=== PATIENT | female | born 1995 | race Caucasian/White ===

== ENCOUNTER → 2017-12-25 16:40 | Emergency (ER) | payer BC ==
[2017-12-25 16:52] VITALS: BP 148/78
--- NOTE | 2017-12-25 17:10 | UC ---
Skin Complaint HPI - HPI Summary HPI Summary: This patient is a 22 year old F presenting [place] [facility] [place] a chief complaint of a skin complaint on her R knee since 12/23/17. The patient rates the pain 5/10 in severity. Patient reports redness, swelling, and pain over her R knee. She visited [facility] and was told by the nurse to be seen for possible cellulitis. - History of Current Complaint Chief Complaint: UCSkin Time Seen by Provider: 12/25/17 16:55 Stated Complaint: BUG BITE Hx Obtained From: Patient Hx Last Menstrual Period: now Onset/Duration: Sudden Onset, Lasting Days - 12/23/2017, Still Present Skin Exposure Onset/Duration: Days Ago - 2 days ago Onset Severity: Moderate Current Severity: Moderate Pain Intensity: 5 Pain Scale Used: 0-10 Numeric Location: Other - R knee Character: Swelling, Pain, Redness - Allergy/Home Medications Allergies/Adverse Reactions: Allergies Allergy/AdvReac Type Severity Reaction Status Date / Time Sulfa (Sulfonamide Allergy Rash Verified 12/25/17 16:52 Antibiotics) Home Medications: Home Medications Escitalopram (NF) [Lexapro 20 mg (NF)] 25 mg PO DAILY 12/25/17 [History Confirmed 12/25/17] Norgestimate-Ethinyl Estradiol [Sprintec 28 Day Tablet] 1 tab PO DAILY 12/25/17 [History Confirmed 12/25/17] Review of Systems Constitutional: Fever - Denies Skin: Other - redness, swelling, and pain over her R knee All Other Systems Reviewed And Are Negative: Yes PMH/Surg Hx/FS Hx/Imm Hx Endocrine History: Thyroid Disease Respiratory History: Asthma - Denies Psychological History: Anxiety, Depression - Surgical History Surgical History: None - Family History Known Family History: Positive: Diabetes - Social History Occupation: Student Lives: Dormitory/Roommates Alcohol Use: None Substance Use Type: None Smoking Status (MU): Never Smoked Tobacco Physical Exam - Summary Physical Exam Summary: VITAL SIGNS: Reviewed. GENERAL: Patient is a well-developed and nourished FEMALE who is lying comfortable in the stretcher. Patient is not in any acute respiratory distress. HEAD AND FACE: Normocephalic EYES: PERRLA, EOMI x 2. EARS: Hearing grossly intact. MOUTH: Oropharynx within normal limits. NECK: Supple, trachea is midline, no adenopathy, no JVD, no carotid bruit. CHEST: Symmetric, no tenderness at palpation LUNGS: Clear to auscultation bilaterally. No wheezing or crackles. CVS: Regular rate and rhythm, S1 and S2 present, no murmurs or gallops appreciated. ABDOMEN: Soft, non-tender. Bowel sounds are normal. No abdominal abnormal pulsations. EXTREMITIES: Full ROM in all major joints, no edema, no cyanosis or clubbing. NEURO: Alert and oriented x 3. No acute neurological deficits. Speech is normal and follows commands. SKIN: Patch of erythema with irregular borders on her R knee. No central clearing. Triage Information Reviewed: Yes Vital Signs: Initial Vital Signs Temp 98.3 F 12/25/17 16:49 Pulse 92 12/25/17 16:49 Resp 18 12/25/17 16:49 BP 148/78 12/25/17 16:49 Pulse Ox 99 12/25/17 16:49 Vital Signs Reviewed: Yes Course/Dx - Course Course Of Treatment: This is a 22-year-old female who presents to the urgent care with a chief complaint of right knee erythema after an insect bite. Patient was diagnosed with a cellulitis. Patient was given Keflex and discharged home with follow-up with PCP. Patient was given instructions if the symptoms worsen she should return to the urgent care or go to the ER. Patient is hemodynamically stable alert oriented 3 - Diagnoses Provider Diagnoses: Cellulitis Discharge - Sign-Out/Discharge Documenting (check all that apply): Patient Departure All imaging exams completed and their final reports reviewed: No Studies - Discharge Plan Condition: Stable Disposition: HOME Prescriptions: Cephalexin CAP* [Keflex CAP*] 500 mg PO TID #30 cap Patient Education Materials: Cellulitis (ED) [facility] - Additional Instructions: Take medications as instructed and adhere to plan Take Acetaminophen or ibuprofen for pain or fever Increase your fluid intake Return to the or go to the emergency department if symptoms worsen Follow-up with primary care physician in next 2-3 days - Billing Disposition and Condition Condition: STABLE Disposition: Home - Attestation Statements Document Initiated by Scribe: Yes Documenting Scribe: Amos Washburn Provider For Whom Scribe is Documenting (Include Credential): Mauro Hernandez MD Scribe Attestation: Amos Tovar scribed for Mauro Hernandez MD on 12/25/17 at 1831. Scribe Documentation Reviewed: Yes Provider Attestation: The documentation as recorded by the scribe, Amos Washburn accurately reflects the service I personally performed and the decisions made by me, Mauro Hernandez MD
== END | disposition home or self-care (01) ==
LOC: UCEAST 16:40
DX: L03.115 Cellulitis of right lower limb (principal); F41.8 Other specified anxiety disorders
CPT/HCPCS: 99202; G0463

== ENCOUNTER 2019-02-20 21:48 | Emergency (ER) | payer BC ==
[2019-02-20 21:59] VITALS: BP 117/75
== END 2019-02-21 00:56 | disposition left against medical advice (07) ==
LOC: ED 21:48
DX: H57.89 Other specified disorders of eye and adnexa (principal); Z53.21 Procedure and treatment not carried out due to patient leaving prior to being seen by health care provider